=== PATIENT | female | born 1935 | race Caucasian/White ===

== ENCOUNTER → 2017-05-12 | Outpatient (CLI) | payer MEDICARE, BC ==
[~2017-05-12] MED LIST: ASPI81TA23 PO; ATOR40TA16 PO; LISI10TA3 PO
[2017-05-12 15:21] LABS: AUTOMATED NEUTROPHIL # 3.9 TH/MM3 (1.8-7.7); BASOPHIL % 0.6 % (0.0-2.0); EOSINOPHIL # 0.1 TH/MM3 (0-0.4); EOSINOPHIL % 1.7 % (0.0-4.0); HEMATOCRIT 38.2 % (35.0-46.0); HEMO FLAGS DIFF FINAL; LYMPH % 28.8 % (9.0-44.0); MEAN CELL VOLUME 92.7 FL (80.0-100.0); MEAN CORPUSCULAR HEMOGLOBIN 31.3 PG (27.0-34.0); MEAN CORPUSCULAR HGB CONC 33.8 % (32.0-36.0); NEUT % 55.9 % (16.0-70.0); PLATELET COUNT 289 TH/MM3 (150-450); RED BLOOD COUNT 4.12 MIL/MM3 (4.00-5.30); RED CELL DISTRIBUTION WIDTH 13.3 % (11.6-17.2); WHITE BLOOD COUNT 7.1 TH/MM3 (4.0-11.0)
[2017-05-12 15:32] LABS: APTT (PATIENT) 24.7 SEC (24.3-30.1)
[2017-05-12 15:41] LABS: ALT (GPT) 32 U/L (10-53); ANION GAP 4 MEQ/L (5-15); AST (GOT) 29 U/L (15-37); BICARBONATE 29.7 MEQ/L (21.0-32.0); BLOOD UREA NITROGEN 8 MG/DL (7-18); CHLORIDE 100 MEQ/L (98-107); GLOMERULAR FILTRATION RATE 86 ML/MIN (>89); GLUCOSE,FASTING 87 MG/DL (74-99); POTASSIUM 4.6 MEQ/L (3.5-5.1); SODIUM (NA) 134 MEQ/L (136-145)
[2017-05-12 15:43] LABS: ALKALINE PHOSPHATASE 67 U/L (45-117); TOTAL BILIRUBIN ADULT 0.4 MG/DL (0.2-1.0)
--- NOTE | 2017-05-12 16:25 | RADRPT ---
EXAM DATE/TIME: 05/12/2017 15:59 [place] COMPARISON: No previous studies available for comparison. INDICATIONS : Evaluate for pneumonia, pneumothorax, or communicable disease. Pre op hysteractomy. MEDICAL HISTORY : None. SURGICAL HISTORY : None. ENCOUNTER: Initial ACUITY: 1 day PAIN SCORE: 0/10 LOCATION: Bilateral chest FINDINGS: PA and lateral views of the chest demonstrate the lungs to be symmetrically aerated without evidence of mass, infiltrate or effusion. The cardiomediastinal contours are unremarkable. Osseous structure s are intact. CONCLUSION: 1. No acute cardiopulmonary disease. Rizwan Aragon MD on May 12, 2017 at 16:23 Board Certified Radiologist. This report was verified electronically.
--- NOTE | 2017-05-14 12:17 | EKG ---
Date Performed: 05/12/2017 Time Performed: 15:13:08 PTAGE: 81 years EKG: Sinus rhythm Normal ECG NO PREVIOUS TRACING DOCTOR: Anastacio Eric Interpretating Date/Time 05/14/2017 12:16:43
== END ==
LOC: CPRE 14:47
PROVIDERS: ATTEND Obstetrics & Gynecology Gynecologic Oncology
DX: Z01.810 Encounter for preprocedural cardiovascular examination (principal); Z01.811 Encounter for preprocedural respiratory examination; Z01.812 Encounter for preprocedural laboratory examination; C54.1 Malignant neoplasm of endometrium
CPT/HCPCS: 36415; 71020; 80053; 85025; 85610; 85730; 93005

== ENCOUNTER 2017-06-09 05:32 | Observation (INO) | payer MEDICARE, BC ==
[~2017-06-09] VITALS: Ht 172.7 cm; Wt 52.0 kg
[2017-06-09] VITALS (7 sets, daily range): BP systolic 122–150; BP diastolic 57–77; PULSE 77–87; RESP 17–20; TEMP 98–98.4; O2SAT 98–100
[2017-06-09] MEDS ORDERED: METOPROLOL TARTRATE 25 MG TAB PO PRN (06:15)
[2017-06-09] MEDS ORDERED: LACTATED RINGER'S 1000 ML IV PRN (06:15)
[2017-06-09] MEDS ORDERED: SODIUM CHLORID 0.9% 500 ML IV PRN (06:15)
[2017-06-09] MEDS ORDERED: POVIDONE IODINE 5% (ANTISEPSIS KIT) 4 APPLICATIONS EACH NARE PRN (06:15)
[2017-06-09] MEDS ORDERED: CHLORHEXIDINE GLUCONATE 2 % 1 PACK (2 CLOTHS) TOPICAL PRN (06:15)
[2017-06-09] MEDS ORDERED: MULT-65 PO (06:28)
[2017-06-09] MEDS ORDERED: OMEGCAP PO (06:28)
[2017-06-09] MEDS ORDERED: VITA100T65 PO (06:28)
[2017-06-09] MEDS ORDERED: ACETAMINOPHEN 1000 MG/100 ML 0 ML IV ONE (06:41)
[2017-06-09] MEDS ORDERED: ARTIFICIAL TEARS OPTH OINT 3.5 APPLIC/3.5 GM TUBO ONE (06:41)
[2017-06-09] MEDS ORDERED: SUGAMMADEX SODIUM 200 MG/2 ML VIAL IV PUSH ONE (06:41)
[2017-06-09] MEDS ORDERED: ceFAZolin 1,000 MG/NS 100 ML IV SCH ×2 (06:45)
[2017-06-09] MEDS ORDERED: HEPARIN SODIUM - SQ 10,000 UNITS/ML VIAL SQ SCH (06:45)
[2017-06-09] MEDS ORDERED: BUPIVACAINE/EPINEPHRINE 0.75% PF 30 ML VIAL ONE (06:57)
[2017-06-09] MEDS ORDERED: FAMOTIDINE 20 MG/2 ML VIAL ONE (07:13)
[2017-06-09] MEDS ORDERED: METHYLENE BLUE 10 MG/ML VIAL OTHER ONE (10:08)
[2017-06-09] MEDS ORDERED: DO NOT ADM ANY ANTICOAGULANT DRUGS PRN (10:41)
[2017-06-09] MEDS ORDERED: traMADol HCL 50 MG TAB PO PRN (10:45)
[2017-06-09] MEDS ORDERED: SODIUM CHLORIDE 0.9% FLUSH 10 ML FLUSH IV FLUSH PRN (10:45)
[2017-06-09] MEDS ORDERED: ONDANSETRON HCL 4 MG/2 ML VIAL IVP PRN (10:45)
[2017-06-09] MEDS ORDERED: PILL SPLITTER OTHER PRN (10:45)
[2017-06-09] MEDS ORDERED: diphenhydrAMINE HCL 25 MG CAP PO PRN (10:45)
[2017-06-09] MEDS ORDERED: LORazepam 0.5 MG TAB PO PRN (10:45)
[2017-06-09] MEDS: D5-1/2 NS + KCL 20 MEQ INJ 1,000 ML IV SCH ×2 (11:00→21:17)
[2017-06-09] MEDS ORDERED: KETOROLAC TROMETHAMINE 30 MG/ML (IVP) VIAL IVP SCH (12:00)
[2017-06-09] MEDS: KETOROLAC TROMETHAMINE 30 MG/ML (IVP) VIAL IVP SCH ×2 (15:30→21:17)
[2017-06-09] MEDS ORDERED: SODIUM CHLORIDE 0.9% FLUSH 10 ML FLUSH IV FLUSH SCH (21:00)
[2017-06-09] MEDS ORDERED: ATORVASTATIN 40 MG TAB PO SCH (21:00)
[2017-06-10] VITALS: BP 117/58; PULSE 82; RESP 16; TEMP 98.6; O2SAT 96
[2017-06-10 04:23] VITALS: BP 129/62; PULSE 76; RESP 16; TEMP 98.4; O2SAT 97
[2017-06-10] MEDS: KETOROLAC TROMETHAMINE 30 MG/ML (IVP) VIAL IVP SCH ×2 (04:25→08:43)
[2017-06-10 05:55] LABS: AUTOMATED NEUTROPHIL # 8.9 TH/MM3 (1.8-7.7); BASOPHIL % 0.2 % (0.0-2.0); HEMATOCRIT 31.8 % (35.0-46.0); LYMPHOCYTE # 1.3 TH/MM3 (1.0-4.8); MEAN CELL VOLUME 91.6 FL (80.0-100.0); MEAN CORPUSCULAR HEMOGLOBIN 31.7 PG (27.0-34.0); MEAN CORPUSCULAR HGB CONC 34.6 % (32.0-36.0); MEAN PLATELET VOLUME 7.6 FL (7.0-11.0); MONO % 13.2 % (0.0-8.0); MONOCYTE # 1.5 TH/MM3 (0-0.9); NEUT % 75.6 % (16.0-70.0); PLATELET COUNT 237 TH/MM3 (150-450); RED BLOOD COUNT 3.47 MIL/MM3 (4.00-5.30); RED CELL DISTRIBUTION WIDTH 13.2 % (11.6-17.2); WHITE BLOOD COUNT 11.7 TH/MM3 (4.0-11.0)
[2017-06-10 06:22] LABS: BICARBONATE 21.7 MEQ/L (21.0-32.0); CALCIUM 7.9 MG/DL (8.5-10.1); CREATININE 0.77 MG/DL (0.50-1.00)
[2017-06-10] MEDS ORDERED: TRAM50 PO (06:28)
[2017-06-10 07:00] VITALS: BP 123/66; PULSE 80; PULSE 82; RESP 16; TEMP 97.7; O2SAT 98
[2017-06-10] MEDS ORDERED: LISINOPRIL 10 MG TAB PO SCH (09:00)
[2017-06-10] MEDS ORDERED: SUGAMMADEX SODIUM 200 MG/2 ML VIAL IV PUSH ONE (09:40)
--- NOTE | 2017-06-10 13:51 | MP ---
cc: ANGELY BUCIO MD, JOHN D. M.D. BROWN,YANIV Tidwell M.D. DATE OF SURGERY: 06/09/2017 PREOPERATIVE DIAGNOSIS: Grade 1 endometrial cancer with postmenopausal bleeding. POSTOPERATIVE DIAGNOSIS Grade 1 endometrial cancer with postmenopausal bleeding. PROCEDURE Robotic-assisted laparoscopic hysterectomy bilateral salpingo-oophorectomy. SURGEON Angely Bucio MD MANAGER PET [employer] first front ventilator ANESTHESIA: General endotracheal anesthesia ESTIMATED BLOOD LOSS 50 cc IV FLUIDS 1100 cc URINE OUTPUT 25 cc HISTORY This is a 81-year-old female who has left hip pain. She had a surgical procedure 12 years ago and in late and has done well until recently has been bothering her some decreased range of motion. Pain. She was undergoing evaluation including x-rays In the process of getting imaging of the pelvis a mass-like thickening to the middle of the uterus within the endometrium was noted and although she had not had any bleeding or spotting. She was referred to Gynecology. She saw Dr. Yaniv Burdick in [place] who performed sampling that showed benign endocervix complex atypical endometrial hyperplasia with areas consistent with a grade 1 endometrial adenocarcinoma. She was seen in our office counseled and was in favor definitive surgical management. She is seen again today in the preop holding area accompanied by her , where I again reviewed findings summarized our plan. I hope we can accomplish this laparoscopically, robotically and the potential need for surgical staging. The pros, risk, benefits were again reviewed. Questions were answered. She expressed good understanding wanted move forward with surgery. PROCEDURE She was taken to the operating room placed in dorsal lithotomy position after general endotracheal anesthesia was administered time-out was undertaken. She was identified by sight recognition and hospital ID bracelet and the proposed procedure was reviewed and confirmed. She was carefully positioned in padded Kevin stirrups. Her arms padded and secured to the sides. She was further secured to the operating table with egg crate padding and tape in across chest over the shoulder fashion. All sites were noted be properly aligned with no malalignments or pressure points. She was prepped, draped sterile fashion, placed in lithotomy position, cervix grasped, uterine cavity sounded to 6 cm. Small Vcare manipulator inserted and secured usual fashion. Zamarripa catheter placed in bladder. She was returned to low lithotomy position change of sterile gloves was undertaken and we confirmed an orogastric tube in the stomach on suction. With manual elevation of the abdominal wall under direct laparoscopic visualization a 5 mm cannula was introduced into the left upper quadrant in an atraumatic fashion. Carbon dioxide gas was insufflated and under visualization a 12 mm cannulas placed in midline above the umbilicus 8 mm cannula placed in the right upper quadrant and left lateral quadrant. The original 5 mm was exchanged for a 8-mm cannula. She was placed in Trendelenburg position. Peritoneal washings were obtained for cytology. The anatomy was explored with findings as described above. Small bowel was folded back on its mesenteric root and three Ray-Gallito sponges were placed around the root of the small bowel mesentery. Robotic system brought into the operative field, it was attached in the usual fashion. Monopolar scissors, fenestrated bipolar forceps and prograsp manipulators placed in arms #one, two and three respectively and I took my place at the surgeon's console. The right round ligament isolated, cauterized transected anterior and posterior leaflets of the broad ligament were opened. The right ureter was identified. The right infundibulopelvic ligament was isolated. The intervening peritoneum was opened. The infundibulopelvic ligament was dissected to the level of pelvic brim where it was cauterized and transected. Posterior peritoneum opened along the right side of uterus and cervix and the right vesicouterine peritoneum dissected off the lower uterine segment and cervix. The right uterine vessels were skeletonized, cauterized and transected as were the cardinal paracervical and uterosacral ligaments. Attention was directed toward the left side where the left round ligament was isolated, cauterized transected anterior and posterior leaflets of the broad ligament were opened. The left ureter was identified, left infundibulopelvic ligament was isolated. The intervening peritoneum was opened as the infundibulopelvic ligament was isolated to the level of the pelvic brim where was cauterized and transected. Posterior peritoneum opened along the left side of uterus and cervix left vesicouterine peritoneum dissected off the lower uterine segment and cervix. The left uterine vessels were skeletonized, cauterized and transected as were the cardinal paracervical and uterosacral ligaments. Circumferential colpotomy was performed. The specimen was delivered trans vaginally which included uterus, cervix, tubes and ovaries. A pneumo occluder balloon was placed in the vagina to maintain pneumoperitoneum. Instruments one and three exchanged for needle drivers as a 0 Vicryl suture was introduced. The vaginal cuff was closed starting at the left corner full-thickness closure incorporating full-thickness of the vaginal wall, posterior peritoneum and uterosacral ligament tied via instrument tie. The closure was held on countertraction as a full-thickness running continuous closure was carried across the vaginal cuff to the contralateral corner where it was similarly fixed, secured, tied via instrument tie. The needle was cut and removed. The bladder integrity was checked by filling the bladder with saline dyed with methylene blue. The bladder distended nicely under pressure. There were no areas of thinning of the bladder. No blue dye visible certainly no extravasation of dye. Good peristalsis of ureters bilaterally and a good margin between the edge of the bladder. The vaginal cuff suture line. The bladder was drained. Some superficial irritation to the peritoneum adjacent to the bladder was oversewn with interrupted 3-0 Vicryl suture to rendered hemostatic, tied via instrument tie. The needle was cut and removed. Pathology came back showing no evidence of invasive cancer in fact there was no obvious cancer remaining in the endometrium such, it was felt that all reasonable surgical objectives had been completed and attention was directed toward closing. Robotic instruments were removed were removed. The robotic system was disengaged from the operative field. I reentered the bedside under sterile condition. Each of the three Ray-Gallito sponges that were placed in the peritoneal cavity were removed laparoscopically through the 12-mm cannula. Each were inspected and noted to be removed in their entirety. The peritoneal cavity sites were hemostatic. There were no remaining foreign objects in the peritoneum. Preliminary counts were correct. 5 mm fascial defect was closed with 0 Vicryl sutures interrupted with the needle pass fascia closure apparatus they were tied securely which rendered the fascia completely airtight and hemostatic. The remaining cannulas were withdrawn. Carbon dioxide gas was removed. 3-0 Vicryl subcutaneous 3-0 Vicryl subcuticular and Steri-Strips used to close these incisions. She was returned to dorsal lithotomy position. Pelvic exam confirmed that the vaginal cuff was well-supported and hemostatic. There were no vaginal lacerations, there was some superficial mucosal irritation at the introitus, oozing slightly which rendered hemostatic with topical silver nitrate. No remaining foreign objects in the vagina. Final counts were correct. She was returned to dorsal supine position pending reversal of anesthesia when I left operating room to precede her to the Post Anesthesia Care Unit. MD OLIVIA Gallegos/jose /4:07 PM /1:20 PM
--- NOTE | 2017-06-12 19:31 | MD ---
cc: ZANDRA PEARSON M.D., KELLY L. MD SCHNEIDER, JULIE D. MD BOLLA, JOHN D. M.D. ADMISSION DATE: 06/09/2017 DISCHARGE DATE: 06/10/2017 PROCEDURE: 06/09/2017, robotic-assisted laparoscopic hysterectomy, bilateral salpingo-oophorectomy. DIAGNOSIS: Endometrial cancer. HOSPITAL COURSE: Did well in early postop period hemodynamically stable tolerating oral intake pending removal of Zamarripa and voiding. No new complaints. OBJECTIVE: In's and out's: 2460/525. Labs: H&H this morning 11 and 31.8. Electrolytes show potassium of 4.7, BUN and creatinine 16 and 0.77. PHYSICAL EXAMINATION Afebrile, pulse 76-87, blood pressure 117-150/58-71, 02 saturations greater than or equal to 96%. Alert, oriented x3. Lungs were clear except for scant mild basilar rales. Cardiovascular - regular rate and rhythm. The abdomen is nondistended and nontender. The incisions are clean and dry. [employer]CH[employer] - no active bleeding or discharge. Extremities nontender. ASSESSMENT: Postop day #1. FINDINGS AT THE TIME OF SURGERY: Preliminary pathology reviewed, activities restrictions discussed. Questions were answered. She expressed good understanding. PLAN: Anticipate she will be ready for discharge to home today. She is to resume prior medications and will have a prescription for Tramadol for pain or to take [id number] medications alternatively. Our office number was again given to her and she has been asked to contact our office to schedule follow up within two weeks or if she has any questions or problems between now and the time of scheduled follow up. MD OLIVIA Gallegos/SAMANTHA /6:27 AM /7:20 PM
== END 2017-06-10 09:59 | disposition home or self-care (01) ==
LOC: HSDC 05:32 → HSDI 10:34 → HCIS 13:15
PROVIDERS: ADMIT Obstetrics & Gynecology Gynecologic Oncology; ATTEND Obstetrics & Gynecology Gynecologic Oncology
DX: C54.1 Malignant neoplasm of endometrium (principal); N95.0 Postmenopausal bleeding; N80.0 Endometriosis of uterus; I10 Essential (primary) hypertension; E78.5 Hyperlipidemia, unspecified; Z79.82 Long term (current) use of aspirin
CPT/HCPCS: 00840; 58552; 80048; 85025; 86850; 86900; 86901; 88112; 88309; 88331; 94150; 96361; 96374; 96375; 96376; C1769; G0378; J0690; J1644; J1885; J2405; J3010; J3480; J7120; J0131